=== PATIENT | male | born 1970 | race Caucasian/White ===

== ENCOUNTER 2016-10-03 15:07 | Emergency (ER) | payer SELFPAY ==
[~2016-10-03] VITALS: Ht 180.3 cm; Wt 85.0 kg
[~2016-10-03 15:07] MED LIST: CYCL-36 PO; LORT5TAB PO; MEDR4PAK3 PO; ORPH100T PO; OXYC-360 PO; PRED20 PO; Z.0.NO CURRENT MEDS
[2016-10-03 15:09] VITALS: BP 170/77; PULSE 94; RESP 20; TEMP 98.7; O2SAT 97
--- NOTE | 2016-10-03 15:50 | PD ---
HPI Chief Complaint: Complaint Time Seen by Provider: 15:47 Travel History International Travel<30 days: No Contact w/Intl Traveler<30days: No Traveled to known affect area: No History of Present Illness HPI 46-year-old male presents to emergency department with questionable STD. Patient has no pain, drainage, or burning with urination, but he does have a sore on the meatus of the penis that she noticed 2 days ago. He states it is nontender and has no drainage. Has no fever chills or other symptoms. He states he had oral sex performed on him approximately one week ago, but then had protected sex. He is allergic to chocolate. 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/16) Reported Meds & Prescriptions Reported Meds & Active Scripts Active Deltasone (Prednisone) 20 Mg Tab 40 Mg PO DAILY FOR 5 DAYS Flexeril (Cyclobenzaprine HCl) 10 Mg Tab 10 Mg PO TID Percocet (Oxycodone/Acetaminophen) 5 Mg/325 Mg Tab 1-2 Tab PO Q4-6HPRN FOR PAIN Percocet (Oxycodone/Acetaminophen) 5 Mg/325 Mg Tab 1-2 Tab PO Q4-6HPRN FOR PAIN Medrol Dosepak (Methylprednisolone) 4 Mg Dharmesh 4 Mg PO DIRECTED TAKE DIRECTED Lortab 5/500 (Acetaminophen/Hydrocodone Bitart) 5 Mg/500 Mg Tab 1-2 Tab PO Q4- 6HPRN FOR PAIN Norflex (Orphenadrine Citrate) 100 Mg Doni 100 Mg PO BID Reported No Current Meds (Miscellaneous Medication) Misc 0 Review of Systems Except as stated in HPI: all other systems reviewed are Neg General / Constitutional: No: Fever Eyes: No: Visual changes HENT: No: Headaches Cardiovascular: No: Chest Pain or Discomfort Respiratory: No: Shortness of Breath Gastrointestinal: No: Abdominal Pain Genitourinary: No: Urgency, Frequency, Dysuria, Discharge Musculoskeletal: No: Pain Skin: Positive Lesions (see history present illness.), No Rash Neurologic: No: Weakness Psychiatric: No: Depression Endocrine: No: Polydipsia Hematologic/Lymphatic: No: Easy Bruising Physical Exam Narrative GENERAL: Patient is in no acute distress. SKIN: Warm and dry. Normal color. Normal turgor. Patient has a 4 mm x 2 mm erythematous lesions on the right base of the meatus of the penis. There is no obvious drainage or streaking. No signs of abscess. It is nontender HEAD: Atraumatic. Normocephalic. EYES: Pupils equal and round. No scleral icterus. No injection or drainage. ENT: No nasal bleeding or discharge. Mucous membranes pink and moist. Pharynx is clear. NECK: Trachea midline. Supple. CARDIOVASCULAR: Regular rate and rhythm. RESPIRATORY: No accessory muscle use. Clear to auscultation. Breath sounds equal bilaterally. GASTROINTESTINAL: Abdomen soft, non-tender, nondistended. Hepatic and splenic margins not palpable. No CVA tenderness. MUSCULOSKELETAL: Extremities without clubbing, cyanosis, or edema. No obvious deformities. NEUROLOGICAL: Awake and alert. No obvious cranial nerve deficits. Motor grossly within normal limits. Five out of 5 muscle strength in the arms and legs. Normal speech. PSYCHIATRIC: Appropriate mood and affect; insight and judgment normal. Data Data Last Documented VS Vital Signs Date Time Temp Pulse Resp B/P Pulse Ox O2 Delivery O2 Flow Rate FiO2 10/03/16 15:09 98.7 94 20 170/77 97 Room Air MDM Medical Decision Making Medical Screen Exam Complete: Yes Emergency Medical Condition: No Differential Diagnosis STD. Syphilis. Genital herpes. Narrative Course A medical screening exam was performed: At the time of evaluation the presenting medical condition was determined not to be of an emergent nature. The patient was given the option of receiving additional care, but declined. Patient was given options for additional community resources from which to obtain care. The Patient Has Been advised to seek medical attention for their presenting complaint. The patient has been advised to return to the ER at any time if an emergent condition develops. Condition: Stable Jeyson Putnam Oct 03, 2016 15:50
== END 2016-10-03 15:58 | disposition left against medical advice (07) ==
LOC: NEPK 15:07
DX: N48.89 Other specified disorders of penis (principal)
CPT/HCPCS: 99281